=== PATIENT | female | born 2000 | race Caucasian/White ===

== ENCOUNTER 2021-10-01 18:29 | Outpatient (CLI) | payer BC ==
[2021-10-01 13:07] VITALS: BP 116/70
--- NOTE | 2021-10-02 11:02 | Physician Query-Final Dx ---
Clinic Account Progress/Dx Physician Query: Please give diagnosis Please include # weeks gestation Date of Service Oct 01, 2021 at 18:29 Oct 02, 2021 11:02
== END 2021-10-01 19:13 ==
LOC: WSo 18:29 → LDRP 18:30 → WSo 19:13
PROVIDERS: ATTEND Family Medicine
DX: O36.8120 Decreased fetal movements, second trimester, not applicable or unspecified (principal); Z3A.26 26 weeks gestation of pregnancy
CPT/HCPCS: 99212